=== PATIENT | female | born 1945 | race Caucasian/White ===

== ENCOUNTER 2018-04-28 10:19 | Observation (INO) | payer MEDICARE ==
[2018-04-24 16:28] LABS: BASOPHILS # (AUTO) 0.1 (0.0-0.1); BASOPHILS % 0.5 % (0.0-1.0); EOSINOPHILS # (AUTO) 0.2 (0.0-0.4); EOSINOPHILS % 2.1 % (0.0-6.0); HEMATOCRIT 44.1 % (34.2-44.1); HEMOGLOBIN 14.8 g/dL (12.0-16.0); LYMPHOCYTES # (AUTO) 1.9 (1.0-3.2); LYMPHOCYTES % 19.4 % (18.0-39.1); MEAN CORPUSCULAR HGB CONC 33.6 g/dL (31-35); MEAN CORPUSCULAR VOLUME 86.3 fL (81-99); MONOCYTES # (AUTO) 0.7 (0.2-0.8); MONOCYTES % 7.3 % (4.4-11.3); NEUTROPHILS % 70.5 % (38.7-80.0); PLATELET COUNT 233 x10e3/uL (140-360); RED BLOOD COUNT 5.11 x10e6/uL (3.6-5.1); RED CELL DISTRIBUTION WIDTH 13.6 % (11.7-14.4)
--- NOTE | 2018-04-24 16:42 | Diagnostic Imaging Report ---
PROCEDURE: Frontal and lateral views of the chest. COMPARISON: None. INDICATIONS: PRE-OPERATIVE CHEST X-RAY FOR HERNIA SURGERY FINDINGS: Lines/tubes: None. Lungs: The lungs are well inflated. Mild prominence of the interstitial markings bilaterally, which may reflect chronic interstitial changes. There is no evidence of consolidation or pulmonary edema. Pleura: There is no pleural effusion or pneumothorax. Heart and mediastinum: Enlarged cardiac silhouette. Pulmonary vasculature is normal. Ill-defined rounded density/convexity in the retrocardiac region. Bones: No acute bony abnormality. Degenerative changes in the thoracic spine. IMPRESSION: 1. enlarged cardiac silhouette, without acute cardiopulmonary abnormalities. 2. Ill-defined rounded density/convexity in the retrocardiac region may represent a hiatal hernia. Prior films, if available, would be helpful for comparison. If no prior films can be obtained, a chest CT is recommended for further evaluation. Gustavo Rosenbaum M.D. Dictated by: Gustavo Rosenbaum M.D. on 04/24/2018 at 16:47 Electronically approved by: Gustavo Rosenbaum M.D. on 04/24/2018 at 16:47
[2018-04-24 16:46] LABS: ANION GAP 15.6 mmol/L (8-16); BLOOD UREA NITROGEN 27 mg/dL (7-26); BUN/CREATININE RATIO 37 (6-25); CALCIUM 10.5 mg/dL (8.4-10.2); CARBON DIOXIDE 24 mmol/L (22-29); CHLORIDE 104 mmol/L (98-107); CREATININE, SERUM 0.73 mg/dL (0.57-1.11); EST GLOMERULAR FILTRATION RATE > 60 ML/MIN (60-); GLUCOSE 117 mg/dL (74-118); POTASSIUM 3.6 mmol/L (3.5-5.1); SODIUM 140 mmol/L (136-145)
[~2018-04-28] VITALS: Ht 149.9 cm; Wt 85.7 kg
[~2018-04-28 10:19] MED LIST: ASPIR 8181 MG PO; FERROUS SULFAT325 M1 PO; HYDROCHLOROTHIA25 MG PO; LEVOTHYROXINE50 MCG PO; LISINOPRIL10 MG PO; PROBIOTIC & AC1 EACH PO; VIT C PO
[2018-04-28] MEDS ORDERED: CEFAZOLIN SOD 2 GM/D5W 50ML 50 ML IV ONE (10:31)
[2018-04-28] MEDS ORDERED: BUPIVACAINE HCL 0.5% INJ 30 ML VIAL INJ ONE (11:31)
[2018-04-28] MEDS ORDERED: BUPIVACAINE 0.5%/EPI 30 ML SDV INJ ONE (13:36)
[2018-04-28] MEDS ORDERED: LIDOCAINE HCL 2% 30 ML TUBE ONE (13:36)
[2018-04-28] MEDS ORDERED: GELATIN SPONGE SZ 100 ONE (13:37)
[2018-04-28] MEDS ORDERED: ONDANSETRON HCL INJ 2 MG/ML VIAL IV PRN (14:00)
[2018-04-28] MEDS ORDERED: HYDROMORPHONE 1MG/1ML INJ IV PRN (14:00)
[2018-04-28 15:30] VITALS: BP 133/83
--- NOTE | 2018-04-28 15:39 | Operative Report ---
DATE OF PROCEDURE: April 28, 2018 PREOPERATIVE DIAGNOSES 1. Paraesophageal hiatal hernia. 2. Bleeding hemorrhoids. POSTOPERATIVE DIAGNOSES 1. Paraesophageal hiatal hernia. 1. Bleeding hemorrhoids. PROCEDURES PERFORMED 1. Laparoscopic repair of paraesophageal hiatal hernia with fundoplication. 2. Internal and external hemorrhoidectomy. DIRECTOR SUMMER SESSIONS: None. ANESTHESIA: General. INDICATIONS AND FINDINGS: The patient is a 72-year-old female who presented with complaints of bleeding hemorrhoids as well as a paraesophageal hiatal hernia found on endoscopy. At surgery, the patient was found to have a large paraesophageal hiatal hernia. There were large hemorrhoids in the right anterior and right posterior positions with evidence of friability involving both the right anterior and right posterior hemorrhoids. TECHNIQUE: After adequate general endotracheal anesthesia, with the patient in the supine position, the abdomen was prepped and draped in sterile fashion with Nicho solution. Approximately 3 cm above the umbilicus, to the left of midline, the skin and subcutaneous tissue were infiltrated with 0.5% Marcaine. A transverse incision was made. Abdominal wall was elevated, and a Veress needle was introduced. Pneumoperitoneum was then created. A 10-mm trocar and cannula were then passed through the umbilical wound. Laparoscopic camera was introduced. Initial laparoscopy revealed the liver to be normal. Lower abdomen appeared normal. There was a large hiatal hernia that was seen. A 10-mm trocar and cannula were placed to the right of the midline through the falciform ligament. A 5-mm trocar and cannula were placed to the left of midline subxiphoid. A 10-mm trocar and cannula were placed in the anterior axillary line below the costal margin. A 10-mm trocar and cannula were placed to the left side of the abdomen lateral to the umbilicus. These were placed under direct vision. The stomach, which had herniated through the esophageal hiatus, was easily delivered into the peritoneal cavity. The lesser omentum was divided with a LigaSure device, exposing the esophageal hiatus. Peritoneal attachments to the right of the hiatus were divided with a LigaSure device. Posterior vagus nerve was identified and preserved. The entire right side of the hiatus was dissected free as was the anterior hiatus. On left side, the fundus of the stomach was mobilized by dividing peritoneal attachments and short gastric vessels, and attachments to the diaphragm to the esophageal hiatus were also divided with the LigaSure device. Care was taken not to injure the vagus nerves, which were identified. Esophagus was encircled with a Andra drain. Esophageal hiatus was closed posterior to the esophagus with interrupted sutures of #0 Ethibond. Fundus of the stomach was then passed posterior to the esophagus. A 56-Divehi esophageal dilator was then passed. A 360-degree fundoplication was done, taking sutures from the stomach to the wall of the esophagus to the stomach using interrupted sutures of #0 Ethibond. Care was taken not to injure the vagus nerves. Once the fundoplication was completed, the esophageal dilator was removed. There was still some enlargement of the hiatus anteriorly, and a single suture of #0 Ethibond was placed anteriorly to close the esophageal hiatus anteriorly. Hemostasis was seen to be adequate. The wound was irrigated with saline and inspected for hemostasis, which was seen to be adequate. Instruments and cannulas were then removed. Pneumoperitoneum was evacuated. Wounds were then closed. Fascia in the larger trocar wound was closed with #0 Vicryl. Skin to all wounds was closed with 4-0 Vicryl in a subcuticular fashion. Sterile dressings applied to each wound. Patient was then placed in lithotomy position. There were enlarged hemorrhoids in the right anterior and right posterior positions which appeared somewhat friable. Perianal area was prepped and draped in sterile fashion with Betadine solution. Perianal skin and anal canal were infiltrated with 0.5% Marcaine with epinephrine. With a large Hill-Martinez retractor in place, the right posterior hemorrhoid was excised first. The external component was grasped. Incision was made at the base of the hemorrhoid. The hemorrhoid was dissected free from the internal sphincter until was completely free. The base was doubly suture ligated with 2-0 Vicryl. The hemorrhoid was removed. A figure-of-8 suture of 2-0 Vicryl was placed across the base of the hemorrhoid. Anal canal mucosa was closed with interrupted sutures of 2-0 Vicryl. The right anterior hemorrhoid also was excised. Incision was made at the base of the external component. This hemorrhoid was dissected free from the underlying internal sphincter. Base of the hemorrhoid was doubly suture ligated with 2-0 Vicryl. The hemorrhoid was removed. Figure-of-8 suture of 2-0 Vicryl was placed across the base of the hemorrhoid. Anal canal mucosa was also closed with interrupted sutures of 2-0 Vicryl. Hemostasis at each suture line was seen to be adequate. In the left lateral position, there was no significant large hemorrhoidal complex. Surgicel gauze was placed over each suture line, and a sterile dressing applied. Patient tolerated the procedures well. Estimated blood loss was 25 mL for the entire procedure. All counts were correct. Patient was taken to the recovery room in satisfactory condition. Job#: [id number]
[2018-04-28 15:52] VITALS: BP 133/83
[2018-04-28] MEDS: HC ACETATE/PRAMOXINE HCL 10 GM FOAM RC SCH ×2 (16:00→21:41)
[2018-04-28] MEDS: DEXTROSE 5%/LACTATED RINGERS 1,000 ML IV SCH ×2 (16:00→22:50)
[2018-04-28] MEDS: MAGNESIUM HYDROXIDE 30 ML UDC PO SCH ×2 (16:00→23:20)
[2018-04-28] MEDS ORDERED: EPHEDRINE SULFATE INJ 50 MG/10 ML SYR ONE (17:26)
[2018-04-28] MEDS ORDERED: SEVOFLURANE INHAL SOLN 250 ML PEN BTL ONE (17:26)
[2018-04-28] MEDS ORDERED: ACETAMINOPHEN 1000 MG/100 ML IV ONE (17:26)
[2018-04-28] MEDS ORDERED: FAMOTIDINE 20 MG/2 ML VIAL IV ONE (17:26)
[2018-04-28] MEDS ORDERED: PROPOFOL IV EMULSION 10 MG/ML 20 ML VIAL ONE (17:26)
[2018-04-28] MEDS ORDERED: METOCLOPRAMIDE HCL 10 MG/2ML VIAL ONE (17:26)
[2018-04-28] MEDS ORDERED: LIDOCAINE HCL 2% LOCAL INJ 5 ML SDV VIAL INJ ONE (17:26)
[2018-04-28] MEDS ORDERED: ONDANSETRON HCL INJ 2 MG/ML VIAL ONE (17:26)
[2018-04-28] MEDS ORDERED: ROCURONIUM BROMIDE 10 MG/ML 5ML VIAL ONE (17:26)
[2018-04-28] MEDS ORDERED: DEXAMETHASONE SOD PHOS INJ 4 MG/ML VIAL ONE (17:26)
[2018-04-28] MEDS ORDERED: FENTANYL CITRATE/PF 100MCG/2 ML INJ ONE (18:01)
[2018-04-28] MEDS ORDERED: MIDAZOLAM HCL 2 MG/2 ML VIAL ONE (18:01)
[2018-04-28 20:00] VITALS: BP 149/75
[2018-04-29] VITALS: BP 144/67
[2018-04-29 04:00] VITALS: BP 143/65
[2018-04-29 05:44] LABS: BASOPHILS % 0.2 % (0.0-1.0); HEMATOCRIT 36.6 % (34.2-44.1); HEMOGLOBIN 12.5 g/dL (12.0-16.0); LYMPHOCYTES % 8.1 % (18.0-39.1); MEAN CORPUSCULAR HEMOGLOBIN 29.6 pg (28-32); MEAN CORPUSCULAR HGB CONC 34.2 g/dL (31-35); MEAN CORPUSCULAR VOLUME 86.5 fL (81-99); MONOCYTES # (AUTO) 0.9 (0.2-0.8); MONOCYTES % 7.6 % (4.4-11.3); NEUTROPHILS # (AUTO) 10.4 (2.1-6.9); NEUTROPHILS % 83.8 % (38.7-80.0); PLATELET COUNT 198 x10e3/uL (140-360); RED BLOOD COUNT 4.23 x10e6/uL (3.6-5.1); RED CELL DISTRIBUTION WIDTH 13.6 % (11.7-14.4)
[2018-04-29] MEDS: DEXTROSE 5%/LACTATED RINGERS 1,000 ML IV SCH (05:55)
[2018-04-29] MEDS: MAGNESIUM HYDROXIDE 30 ML UDC PO SCH (06:00)
[2018-04-29] MEDS ORDERED: LEVOTHYROXINE SODIUM 50 MCG TAB PO SCH (06:00)
[2018-04-29] MEDS ORDERED: HYDROCODONE/APAP 5MG-325MG TAB PO PRN (07:00)
[2018-04-29 08:00] VITALS: BP 151/67
[2018-04-29 08:32] VITALS: BP 151/67
[2018-04-29] MEDS ORDERED: HYDROCHLOROTHIAZIDE 25 MG TAB PO SCH (09:00)
[2018-04-29] MEDS: ASPIRIN 81 MG CHEW TAB PO SCH ×2 (09:00→10:24)
[2018-04-29] MEDS ORDERED: POLYETHYLENE GLYCOL 3350 17 GM PACK PO SCH (09:00)
[2018-04-29] MEDS ORDERED: LISINOPRIL 20 MG TAB PO SCH (09:00)
[2018-04-29] MEDS ORDERED: LISINOPRIL 10 MG TAB PO SCH (09:00)
[2018-04-29] MEDS: HC ACETATE/PRAMOXINE HCL 10 GM FOAM RC SCH (10:24)
[2018-04-29] MEDS ORDERED: LISINOPRIL10 MG PO (11:33)
[2018-04-29 12:22] VITALS: BP 193/85
[2018-04-30] MEDS ORDERED: LISINOPRIL 20 MG TAB PO SCH (09:00)
== END 2018-04-29 15:29 | disposition home or self-care (01) ==
LOC: OR 10:19 → PACU V 14:39 → IMCU 15:07
PROVIDERS: ADMIT Surgery; ATTEND Surgery
DX: K44.9 Diaphragmatic hernia without obstruction or gangrene (principal); K64.8 Other hemorrhoids; K64.4 Residual hemorrhoidal skin tags; I10 Essential (primary) hypertension; I48.91 Unspecified atrial fibrillation; I25.2 Old myocardial infarction; I25.10 Atherosclerotic heart disease of native coronary artery without angina pectoris; E03.9 Hypothyroidism, unspecified
CPT/HCPCS: 36415 ×2; 43281; 46260; 71046; 80048; 85025 ×2; 88304; G0378 ×2; J1100; J2001; J2250; J2405; J2765; J7120